=== PATIENT | female | born 1970 | race Caucasian/White ===

== ENCOUNTER 2019-12-03 14:25 | Emergency (ER) | payer OTHER, SELFPAY ==
--- NOTE | 2019-12-03 14:27 | ED.GENADULT ---
HPI - General Adult General Chief complaint: Ear Stated complaint: left ear pain/pressure Time Seen by Provider: 12/03/19 14:40 Source: patient Mode of arrival: ambulatory Limitations: no limitations History of Present Illness HPI narrative: 49-year-old female patient presents to the the medical center with complaints of left ear pain x3 days. Patient states that she did go swimming recently at her daughter's house. Patient states she first noticed the pain about and it got increasingly worse on Wednesday. Patient denies any fevers, runny nose or sore throat. Related Data Allergies Allergy/AdvReac Type Severity Reaction Status Date / Time No Known Drug Allergies Allergy Verified 01/05/12 11:44 Review of Systems Review of Systems: Narrative: CONSTITUTIONAL: Denies fever, chills, or sweats. EYES: Denies visual changes, redness, or discharge. ENT: Denies rhinorrhea, congestion, sore throat, positive left otalgia. CARDIOVASCULAR: Denies chest pain, palpitations, or edema. RESPIRATORY: Denies cough or dyspnea. GASTROINTESTINAL: Denies abdominal pain, nausea, vomiting, or diarrhea. GENITOURINARY: Denies dysuria or hematuria. SKIN: Denies rash or itching. MUSCULOSKELETAL: Denies back pain, joint pain, or myalgia. NEUROLOGIC: Denies headache, numbness, or weakness. PSYCHIATRIC: Denies anxiety or depression. 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 There is no relevant family history pertinent to the presenting complaint. Exam Narrative: Exam Narrative: GENERAL: Well-appearing, well-nourished, and in no acute distress. HEAD: Normocephalic, atraumatic. EYES: PERRLA and EOMI. ENT: Nares clear, no rhinorrhea or epistaxis. Mucous membranes moist. Patient has discharge and erythema and swelling noted to the left ear canal. Patient does have pain on manipulation of the outer ear. Posterior pharynx no erythema, tonsillectomy, exudates or lesions present. NECK: Supple. No lymphadenopathy CHEST: Clear to auscultation. No respiratory distress. HEART: Regular rate and rhythm. No murmur heard. Normal peripheral pulses. ABDOMEN: Soft, nontender, nondistended, normal active bowel sounds. EXTREMITIES: Normal range of motion. No edema. SKIN: Warm, dry, no rash. NEURO: No focal deficits. Alert and oriented x3. Course Vital Signs Vital signs: Vital Signs Temperature 36.6 C 12/03/19 14:35 Pulse Rate 62 12/03/19 14:35 Respiratory Rate 16 12/03/19 14:35 Blood Pressure 152/93 H 12/03/19 14:35 Pulse Oximetry 99 12/03/19 14:35 Temperature 36.6 C 12/03/19 14:35 Pulse Rate 62 12/03/19 14:35 Respiratory Rate 16 12/03/19 14:35 Blood Pressure 152/93 H 12/03/19 14:35 Pulse Oximetry 99 12/03/19 14:35 Vital signs reviewed. The patient has been informed that they may have pre-hypertension or Hypertension based on a BP reading in the department. I recommend that the patient call the primary care provider listed on their discharge instructions or a physician of their choice this week to arrange follow up for further evaluation of possible pre-hypertension or Hypertension Medical Decision Making Differential Diagnosis Differential Diagnosis: Differential diagnosis: Otitis media, otitis externa, perforated TM, infection of the outer ear, foreign body or cerumen impaction, ruptured TM, acute mastoiditis, ligament otitis externa, dehydration, pneumonia, sepsis, dental or intraoral infection, TMJ dysfunction Notify patient does appear that she has an otitis externa infection to the left ear. Discussed with her we will discharge her home with an antibiotic eardrop. She can take Tylenol and ibuprofen as needed for the pain. Patient verbalized understanding denies any other questions or concerns at
[2019-12-03 14:35] VITALS: BP 152/93; PULSE 62; RESP 16; TEMP 36.6; O2SAT 99
== END 2019-12-03 14:55 | disposition home or self-care (01) ==
PROVIDERS: Emergency Provider Nurse Practitioner Family
DX: H60.332 Swimmer's ear, left ear (principal)
CPT/HCPCS: 99203; G0463